=== PATIENT | male | born 2000 | race Caucasian/White ===

== ENCOUNTER 2021-05-08 01:14 | Emergency (ER) | payer OTHER ==
[~2021-05-08 01:14] MED LIST: TYLENOL W/CODEIN1 E1 PO
[2021-05-08 01:40] LABS: HEMOGLOBIN 16.6 gm/dl (14.0-17.5); RED BLOOD COUNT 5.1 M/UL (4.20-5.50); WHITE BLOOD COUNT 13.3 K/UL (4.5-11.0)
[2021-05-08 02:00] LABS: BUN/CREATININE RATIO 12 (0-10)
== END 2021-05-08 03:35 | disposition home or self-care (01) ==
LOC: ER1 01:14
PROVIDERS: Family Medicine
DX: S00.81XA Abrasion of other part of head, initial encounter (principal); M25.552 Pain in left hip; F17.210 Nicotine dependence, cigarettes, uncomplicated; Z88.0 Allergy status to penicillin; V49.9XXA Car occupant (driver) (passenger) injured in unspecified traffic accident, initial encounter
CPT/HCPCS: 70450; 72125; 73502; 80053; 82962; 85025; 90471; 90715; 96374; 96375; 99284; G0480; J1885; J2405